=== PATIENT | female | born 1970 | race Caucasian/White ===

== ENCOUNTER 2016-12-11 11:42 | Emergency (ER) | payer OTHER, MEDICAID ==
[~2016-12-11] VITALS: Ht 160 cm; Wt 68.0 kg
[~2016-12-11 11:42] MED LIST: ARIP1TAB7 PO; FURO80TA3 PO; GABA-494 PO; OMEP20CA74 PO; RIFA550T PO; SPIR100T21 PO
[2016-12-11 12:43] LABS: Basophils # (auto) 0 uL; CONDITION Y; DEFINITIVE SEE PRINTOUT; Eosinophils # (auto) 0.1 uL; Hematocrit 35.2 % (36.0-46.0); Lymphocytes # (auto) 0.6 uL; Monocytes # (auto) 0.2 uL; White Blood Cell 2.2 10^3/uL (4.4-10.8)
[2016-12-11 12:47] LABS: Basophils % (auto) 1.2 % (0.0-2.0); Eosinophils % (auto) 4.4 % (0.0-7.0); Lymphocytes % (auto) 28.2 % (10.0-50.0); Mean Corpuscular Hemoglobin 27.9 pg (28.0-32.0); Mean Corpuscular Volume 81.9 fL (80.0-100.0); Mean Platelet Volume 9.2 fL (7.4-10.4); Monocytes % (auto) 10.8 % (0.0-12.0); Neutrophils # (auto) 1.2 uL; Neutrophils % (auto) 55.4 % (37.0-80.0); Red Cell Distribution Width 17.7 % (11.6-16.0)
[2016-12-11 13:04] LABS: Albumin 3.3 g/dL (3.4-5.0); Alkaline Phosphatase 167 U/L (45-117); Anion Gap 7 (5-15); Aspartate Aminotransferase 26 U/L (15-37); BUN/Creatinine Ratio 10.6; Bilirubin, Total 1.9 mg/dL (0.2-1.0); Blood Urea Nitrogen 7 mg/dL (7-18); Calcium 8.5 mg/dL (8.5-10.1); Carbon Dioxide 23 mmol/L (21-32); Chloride 109 mmol/L (98-107); GFR African American 123 mL/min; GFR Non-African American 102 mL/min; Glucose 78 mg/dL (74-106); Magnesium 1.9 mg/dL (1.6-2.6); Sodium 139 mmol/L (136-145); Total Protein 7.5 g/dL (6.4-8.2)
[2016-12-11] MEDS ORDERED: SODIUM CHLORIDE 0.9% 1,000 ML IV ONE (13:53)
[2016-12-11 13:56] LABS: Platelet Count (auto) 58 10^3/uL (140-450); Platelet Estimate Decreased
[2016-12-11] MEDS ORDERED: ONDANSETRON HCL 4 MG/2 ML VIAL IV ONE (14:00)
[2016-12-11 14:08] LABS: Platelet Clumps FEW
[2016-12-11 14:35] LABS: Urine Bilirubin Negative (Negative); Urine Blood Negative /uL (Negative); Urine Color Yellow (Yellow); Urine Glucose Normal (Normal); Urine Ketone Negative (Negative); Urine Nitrite Negative (Negative); Urine RBC <1 /hpf (0 - 4); Urine Squamous Epithelial Cell FEW /hpf (<5); Urine Urobilinogen Normal (Negative)
[2016-12-11 16:19] VITALS: BP 141/81
[2016-12-11] MEDS ORDERED: HYDROmorphone HCL 2 MG/ML VL IV ONE (16:45)
== END 2016-12-11 18:19 | disposition home or self-care (01) ==
LOC: ER 11:42
DX: N39.0 Urinary tract infection, site not specified (principal); R11.2 Nausea with vomiting, unspecified; I13.0 Hypertensive heart and chronic kidney disease with heart failure and stage 1 through stage 4 chronic kidney disease, or unspecified chronic kidney disease; N18.9 Chronic kidney disease, unspecified; I50.9 Heart failure, unspecified
CPT/HCPCS: 36415; 74176; 80053; 81001; 83605; 83735; 84484; 85025; 94761; 96361; 96374; 96375; 99285; J1170; J2405

== ENCOUNTER 2017-03-23 20:10 | Emergency (ER) | payer OTHER, MEDICAID ==
[~2017-03-23] VITALS: Ht 160 cm; Wt 68.0 kg
[2017-03-23 20:51] LABS: Basophils # (auto) 0 uL; Eosinophils # (auto) 0.1 uL; Lymphocytes # (auto) 0.5 uL; Monocytes # (auto) 0.3 uL; White Blood Cell 2.9 10^3/uL (4.4-10.8)
[2017-03-23 20:53] LABS: Basophils % (auto) 0.8 % (0.0-2.0); Eosinophils % (auto) 2.6 % (0.0-7.0); Hematocrit 38.6 % (36.0-46.0); Hemoglobin 13.5 g/dL (12.2-16.2); Lymphocytes % (auto) 17.9 % (10.0-50.0); Mean Corpuscular Hemoglobin 29.8 pg (28.0-32.0); Mean Corpuscular Hgb Conc. 34.9 g/dL (32.0-36.0); Mean Corpuscular Volume 85.5 fL (80.0-100.0); Neutrophils % (auto) 69.7 % (37.0-80.0); Nucleated Red Blood Cells % 0.3 %; Platelet Count (auto) 48 10^3/uL (140-450); Red Cell Distribution Width 16.9 % (11.8-14.3)
[2017-03-23 20:53] LABS: Urine Bilirubin Negative (Negative); Urine Blood Negative /uL (Negative); Urine Color Yellow (Yellow); Urine Glucose Normal (Normal); Urine Ketone Negative (Negative); Urine Nitrite Negative (Negative); Urine RBC 1 /hpf (0 - 4); Urine Squamous Epithelial Cell FEW /hpf (<5); Urine Urobilinogen Normal (Negative)
[2017-03-23 21:08] LABS: Albumin 3.5 g/dL (3.4-5.0); BUN/Creatinine Ratio 13.1; Calcium 8.8 mg/dL (8.5-10.1); Potassium 3.9 mmol/L (3.5-5.1)
[2017-03-23 21:10] LABS: Bilirubin, Total 2.5 mg/dL (0.2-1.0); Total Protein 8.1 g/dL (6.4-8.2)
[2017-03-24] MEDS ORDERED: MEPERIDINE HCL (25 MG/ML) 1ML VIAL ONE (01:30)
[2017-03-24] MEDS ORDERED: MEPERIDINE HCL (25 MG/ML) 1ML VIAL IV ONE (01:45)
[2017-03-24] MEDS ORDERED: diphenhdrAMINE HCL 50 MG/1 ML VL IV ONE (03:30)
[2017-03-24] MEDS ORDERED: MORPHINE SULF INJ 2 MG/ML SYRINGE 1ML IV ONE ×2 (03:30→07:00)
[2017-03-24] MEDS ORDERED: ONDANSETRON HCL 4 MG/2 ML VIAL IV ONE ×2 (03:30→07:00)
[2017-03-24] MEDS ORDERED: metroNIDAZOLE 500MG/100ML 100 ML IV ONE (06:30)
[2017-03-24] MEDS ORDERED: cefTRIAXone 1GM/50ML D5W 50 ML IV ONE ×2 (06:30)
[2017-03-24 09:46] VITALS: BP 125/69
== END 2017-03-24 10:04 | disposition home or self-care (01) ==
LOC: ER 20:10
DX: K80.10 Calculus of gallbladder with chronic cholecystitis without obstruction (principal); D72.819 Decreased white blood cell count, unspecified; K74.60 Unspecified cirrhosis of liver; I50.9 Heart failure, unspecified; I11.0 Hypertensive heart disease with heart failure; K21.9 Gastro-esophageal reflux disease without esophagitis; Z98.51 Tubal ligation status
CPT/HCPCS: 36415; 74176; 76705; 80053; 81001; 82150; 83690; 85025; 96365; 96368; 96375; 96376; 99285; J1200; J2175; J2270; J2405; J3490; J7040; J0696

== ENCOUNTER 2019-01-13 12:58 | Emergency (ER) | payer MEDICARE, MEDICAID ==
[~2019-01-13] VITALS: Ht 160 cm; Wt 80.3 kg
[~2019-01-13 12:58] MED LIST changes: +DOCU100C8 PO; -GABA-494 PO; +GABA100C9 PO; +HYDR-4833 PO; -SPIR100T21 PO; +SPIR100T4 PO; +TRAM50TA2 PO
[2019-01-13 14:24] LABS: Basophils # (auto) 0 uL; Basophils % (auto) 0.9 % (0.0-2.0); Eosinophils # (auto) 0.1 uL; Hemoglobin 15.8 g/dL (12.2-16.2); Lymphocytes # (auto) 0.9 uL; Monocytes # (auto) 0.3 uL; Neutrophils # (auto) 1.6 uL; Nucleated Red Blood Cells % 0.3 %; White Blood Cell 2.9 10^3/uL (4.4-10.8)
[2019-01-13 14:25] LABS: Albumin 3.5 g/dL (3.4-5.0); BUN/Creatinine Ratio 10.3; Calcium 8.7 mg/dL (8.5-10.1); Potassium 3.9 mmol/L (3.5-5.1)
[2019-01-13 14:26] LABS: Hematocrit 44.4 % (36.0-46.0); Mean Corpuscular Hemoglobin 31.7 pg (28.0-32.0); Mean Corpuscular Hgb Conc. 35.4 g/dL (32.0-36.0); Mean Corpuscular Volume 89.6 fL (80.0-100.0); Monocytes % (auto) 9.5 % (0.0-12.0); Neutrophils % (auto) 53.6 % (37.0-80.0); Platelet Count (auto) 44 10^3/uL (140-450); Red Blood Cells 4.96 10^6/uL (4.0-5.20); Red Cell Distribution Width 14.9 % (11.8-14.3)
[2019-01-13 14:28] LABS: Bilirubin, Total 2.3 mg/dL (0.2-1.0); Total Protein 7.5 g/dL (6.4-8.2)
[2019-01-13 14:37] LABS: Urine Bacteria NONE SEEN /hpf (None Seen); Urine Blood Negative /uL (Negative); Urine Specific Gravity 1.021 (1.001-1.035); Urine WBC <1 /hpf (0 - 5)
[2019-01-13] MEDS ORDERED: IBUPROFEN 800 MG TAB PO ONE (16:45)
[2019-01-13 17:18] VITALS: BP 151/81
== END 2019-01-13 17:20 | disposition home or self-care (01) ==
LOC: ER 12:58
DX: K74.60 Unspecified cirrhosis of liver (principal); K21.9 Gastro-esophageal reflux disease without esophagitis; I10 Essential (primary) hypertension; Z90.710 Acquired absence of both cervix and uterus; Z98.51 Tubal ligation status; Z88.6 Allergy status to analgesic agent; Z79.899 Other long term (current) drug therapy
CPT/HCPCS: 36415; 74176; 80053; 81001; 82140; 82150; 83690; 85025

== ENCOUNTER 2019-09-01 13:10 | Inpatient (IN) | payer MEDICARE, OTHER, MEDICAID ==
[~2019-09-01] VITALS: Ht 160 cm; Wt 90.2 kg
[2019-09-01] MEDS ORDERED: SODIUM CHLORIDE 0.9% 500 ML IVB ONE (13:42)
[2019-09-01] MEDS ORDERED: ONDANSETRON HCL 4 MG/2 ML VIAL IV ONE (13:45)
[2019-09-01] MEDS ORDERED: HYDROmorphone HCL 2 MG/ML VL IV ONE (13:45)
[2019-09-01 14:10] LABS: Basophils # (auto) 0.1 10 ^3/uL (0-0.2); Eosinophils # (auto) 0.1 10 ^3/uL (0-0.8); Neutrophils # (auto) 2.9 10 ^3/uL (1.6-8.6); White Blood Cell 4.5 10^3/uL (4.4-10.8)
[2019-09-01 14:17] LABS: Basophils % (auto) 1.3 % (0.0-2.0); Eosinophils % (auto) 1.4 % (0.0-7.0); Hematocrit 47.4 % (36.0-46.0); Hemoglobin 16.1 g/dL (12.2-16.2); Lymphocytes % (auto) 22.8 % (10.0-50.0); Mean Corpuscular Hemoglobin 31.6 pg (28.0-32.0); Mean Corpuscular Volume 93.1 fL (80.0-100.0); Monocytes # (auto) 0.4 10 ^3/uL (0-1.3); Monocytes % (auto) 9.9 % (0.0-12.0); Neutrophils % (auto) 64.6 % (37.0-80.0); Nucleated Red Blood Cells % 0.2 %; Platelet Count (auto) 55 10^3/uL (140-450); Red Cell Distribution Width 16.2 % (11.8-14.3)
[2019-09-01 14:23] LABS: Albumin 3.3 g/dL (3.4-5.0); Calcium 8.7 mg/dL (8.5-10.1); Potassium 4.2 mmol/L (3.5-5.1)
[2019-09-01 14:25] LABS: INR 1.64 (0.9-1.15); Partial Thromboplastin Time 32.5 sec (23.64-32.05)
[2019-09-01 14:26] LABS: BUN/Creatinine Ratio 9.5; Bilirubin, Total 3.6 mg/dL (0.2-1.0); Total Protein 7.3 g/dL (6.4-8.2)
[2019-09-01] MEDS ORDERED: MORPHINE SULF INJ 2 MG/ML SYRINGE 1ML IV PRN (15:15)
[2019-09-01] MEDS ORDERED: HYDROmorphone HCL 2 MG/ML VL IV PRN ×2 (15:15)
[2019-09-01] MEDS ORDERED: PANTOPRAZOLE 40 MG/10 ML VIAL INJ IV ONE (15:15)
[2019-09-01] MEDS ORDERED: TEMAZEPAM 15 MG CAP PO PRN (15:15)
[2019-09-01] MEDS ORDERED: NITROGLYCERIN 0.4 MG SL TAB SL PRN (15:15)
[2019-09-01] MEDS ORDERED: FUROSEMIDE INJECTION 10 ML ONE (15:55)
[2019-09-01] MEDS ORDERED: FUROSEMIDE 40 MG/4 ML VIAL IV ONE (16:00)
--- NOTE | 2019-09-01 17:05 | NUR ---
Telemetry admit from [facility] admitted to Telemetry unit after SBAR received. Patient oriented to PREETHI GAONA RN primary RN, unit, room, bed, and unit policies regarding patient care and visiting hours. Patient now on continuous telemetry monitoring, tele box # and telemetry reading on arrival to unit is . Patient weighed by bedscale and encouraged to call if they need something. All questions and concerns addressed, patient verbalized understanding. Note:
[2019-09-01] MEDS ORDERED: OMEP-263 (18:45)
[2019-09-01] MEDS ORDERED: GABA400C11 (18:45)
--- NOTE | 2019-09-01 20:00 | NUR ---
Opening Shift Note Assumed care of patient, awake and alert x4. Patient denies shortness of breath at this time, patient is on 2L NC, no signs/symptoms of distress noted or verbalized at this time. Patient is complaining of lower abdominal pain (pain scale 8/10) and nausea, will medicate patient as ordered by MD. Instructed on plan of care and to call for assistance as needed, patient verbalized understanding. Bed is locked in lowest position, side rails x2 are up, call light is within reach, and bed alarm is on.
[2019-09-01] MEDS: HYDROmorphone HCL 2 MG/ML VL IV PRN (20:30)
[2019-09-01] MEDS: PROMETHAZINE HCL 25 MG/ML 1ML IV PRN (20:30)
--- NOTE | 2019-09-01 20:30 | NUR ---
Pain/Nausea Patient is complaining of lower abdominal pain (pain scale 8/10) and nausea, patient has been medicated for pain and nause as ordered by MD (see eMAR).
--- NOTE | 2019-09-01 21:00 | NUR ---
Reassessment Pain/Nausea Patient laying in bed, eyes closed, with even and unlabored respirations noted. No sign/symptoms of pain or nausea noted at this time.
[2019-09-01] MEDS: PANTOPRAZOLE 40 MG TAB PO SCH (21:29)
[2019-09-01 21:50] VITALS: BP 131/82
[2019-09-01] MEDS ORDERED: IOHEXOL 350 MG/ML 100ML IJ ONE (22:31)
[2019-09-02] MEDS: PROMETHAZINE HCL 25 MG/ML 1ML IV PRN ×3 (03:19→23:35)
[2019-09-02] MEDS ORDERED: D5W 5% 1,000 ML IV ONE (05:00)
[2019-09-02] MEDS ORDERED: DEXTROSE 50% SYRINGE 50 ML IV ONE (05:11)
[2019-09-02] MEDS ORDERED: DEXTROSE (50%) 50ML SYRG IV ONE ×2 (05:15)
--- NOTE | 2019-09-02 05:41 | NUR ---
Low Blood Sugar 04:28: Patient was complaining of generalized weakness and patient stated "I feel like my body is shutting down." Patient was noted to be pale, blue lips, and cool to touch. Vital signs were performed which were the following: BP: 97/77, HR: 98, RR: 18, SPO2: 94% on 2L NC. Blood sugar at this time was performed which reveled to be 27. Patient was lethargic but A&OX4 and able to swallow. Patient was provided with 2 orange juices and drank them without complications. 04:30: Hospitalist was paged at this time and no call back was received. 04:36: Blood sugar was rechecked and found to be 28. 04:45: Hospitalist re-paged for second time. No call back was received at this time. Patient was still A&O x4. 04:50: This RN hang a bag of D5% and infused it at 75ml/hr. 04:50: Hospitalist was re-paged for third time. No call back was received at this time. 04:55 moth exterminator made aware of situation and that this RN had paged hospitalist x3 times with no response, per charge nurse she was going to make banquet houseperson aware. 05:05: Spoke with hospitalist MD Hogue. Made MD Hogue aware of patient's condition (including blue lip colors, cool skin to touch, and pale completion) and this RN made Dr. Hogue aware that she started to infuse D5W at 75mls/hr. Per MD Hogue this was okay and ordered to bolus the rest of the D5%, switch the D5% to D10% at 75mls/hr after the bolus was completed, to administer two amps of D50% IV twice, recheck blood sugar in 30 minutes, and Q4 hour accu-checks with no insulin coverage. Orders were received, read back, verified, and carried out. 0541: Blood sugar rechecked at this time and found to be 61. Patient at this time was A&OX4 and still lethargic.
[2019-09-02 05:47] VITALS: BP 109/83
[2019-09-02] MEDS: DEXTROSE 10% 1,000 ML IV SCH ×3 (06:00→21:56)
[2019-09-02] MEDS ORDERED: DEXTROSE (50%) 50ML SYRG IV PRN ×2 (06:30→10:00)
--- NOTE | 2019-09-02 07:25 | NUR ---
OPEN REPORT RECEIVED REPORT ON PATIENT. PATIENT HAD DECREASE BLOOD GLUCOSE VALUES AND DECREASE MENTATION. PATIENT DENIED DIZZINESS, SYNCOPE OR FEELING FAINT/LIGHTHEADED AND OR SPINNING. PATIENT STATED FEELING TIRED, DELAYED RESPONSES TO QUESTIONS. REASSESSED BG 245MG/DL, DC IV FLUIDS OF D10 AT 75ML/DL. WILL CONTINUE TO MONITOR
[2019-09-02 08:00] VITALS: BP 132/80
[2019-09-02] MEDS: ACCU-CHEK COMFORT CURVE STRIP VI SCH ×4 (10:35→22:00)
[2019-09-02] MEDS: PANTOPRAZOLE 40 MG TAB PO SCH ×2 (10:35→21:55)
--- NOTE | 2019-09-02 10:35 | NUR ---
OBSERVATION UPON AUSCULTATION OF HEART SOUNDS, HEARD A NEW MURMUR ON THE PULMONIC VALVE. NOTED EDEMA BOTH RIGHT AND LEFT HANDS. BILATERAL EDEMA ON THE FEET CONTINUOUSLY PRESENT.
--- NOTE | 2019-09-02 10:48 | NUR ---
PAGED HOSPITAL LIST ABOUT NEW FINDINGS
--- NOTE | 2019-09-02 11:20 | NUR ---
PHYSICIAN NOTIFIED NOTIFIED DR. ENCARNACION, HOSPITAL LIST OF [facility]/ CHANGE IN CONDITION OF PATIENT. NOTED MURMUR AND BILATERAL EDEMA OF RIGHT AND LEFT HANDS, WHICH WAS NOT PRESENT ON ADMISSION ON 09/01/2019.
--- NOTE | 2019-09-02 11:30 | NUR ---
NUCLEAR MED COMMUNICATION CALLED TO HAVE PATIENT NPO FOR HIDA SCAN.
[2019-09-02] MEDS: HYDROmorphone HCL 2 MG/ML VL IV PRN ×2 (11:42→15:03)
[2019-09-02 12:00] VITALS: BP 122/86
--- NOTE | 2019-09-02 16:10 | NUR ---
Nutrition Assessment Notes Please refer to link for full assessment notes. Est Energy needs: 5564-9992 kcals (14-18 kcal/kgBW) Est Protein needs: 50-62 gms/day (0.8-1.0 gm/kgBW) Will continue to monitor and reassess prn. Addendum: 09/02/19 at [address] Amended: Links added.
[2019-09-02 16:57] VITALS: BP 111/79
--- NOTE | 2019-09-02 17:20 | NUR ---
COMMUNICATION DR. ENCARNACION PAGED FOR PATIENTS AMMONIA LEVELS FROM 09/01/2019 133/UNIT VOLUME, WHICH IS INCREASED. PREVIOUS DR. ENCARNACION ASKED TO PUT IN AMMONIA LEVELS FOR TODAY 09/02/2019 AND NOTIFY RESULTS IF THEY ARE INCREASED. BY 1700 LAB RESULTS HAVE NOT POPULATED AND BLOOD DRAW HAD NOT OCCURRED, PAGED DR. ENCARNACION PREVIOUS INCREASED LAB VALUES FROM 09/01/[address] ENCARNACION ORDERED 30ML OF LACTULOSE Q6HR FIRST DOSE NOW, WILL PROCEED WITH REQUEST AND WILL CONTINUE TO MONITOR.
[2019-09-02] MEDS: LACTULOSE 20Gm/30ML SOLN PO SCH (18:43)
--- NOTE | 2019-09-02 19:30 | NUR ---
Opening Shift Note Assumed care of patient, awake and alert x4, with a delay in response to questions. Patient is complaining of shortness of breath at this time. Patient is on 3L NC and oxygen saturation at this time is 97%. Upon physical assessment, patient was found to have crackles to bilateral lower lobes, nonpitting edema to bilateral upper and lower extremities, will notify hospitalist of findings. Patient denies pain at this time. Patient is complaining of nausea at this time, will medicate patient for nausea as ordered by MD (see eMAR). Instructed on plan of care and to call for assistance as needed, patient verbalized understanding. Bed is locked in lowest position, side rails x2 are up, call light is within reach, and bed alarm is on.
--- NOTE | 2019-09-02 19:50 | NUR ---
Hospitalist Paged RE: Shortness of Breath Hospitalist paged regarding shortness of breath. Awaiting call back.
--- NOTE | 2019-09-02 20:02 | NUR ---
Received Call from Dr. Cerda Received call from Dr. Cerda. Notified Dr. Cerda that patient is complaining of shortness of breath and upon physical assessment this RN noted crackles to bilateral lower lobes and non-pitting edema to bilateral upper and lower extremities. Dr. Cerda notified that patient's oxygen saturation is 97% on 3LNC and that patient has an active order for D10% to infuse at 75mls/hr. Discussed plan of care with Dr. Cerda over the phone. Per Dr. Cerda he will look over chart and input orders. Will carry out orders as received once they are entered into the EMR.
[2019-09-02] MEDS ORDERED: ALBUMIN 25% 50 ML IV ONE (20:15)
[2019-09-02] MEDS ORDERED: FUROSEMIDE 100 MG/10ML VIAL IV ONE (20:15)
[2019-09-02 21:43] VITALS: BP 103/80
[2019-09-03] MEDS: LACTULOSE 20Gm/30ML SOLN PO SCH ×5 (00:32→23:35)
--- NOTE | 2019-09-03 00:50 | NUR ---
Urine Specimen Collected Urine specimen collected and sent to lab via bullet.
[2019-09-03] MEDS: ACCU-CHEK COMFORT CURVE STRIP VI SCH ×6 (02:30→23:32)
--- NOTE | 2019-09-03 04:00 | NUR ---
Bowel Movement Assisted patient to the bedside commode with the assistance of yamilex Gray. Patient noted to have a large dark brown loose bowel movement. Patient cleaned and assisted back into bed. Patient tolerated well. Bed is locked in lowest position, side rails x 2 are up, call light is within reach, and bed alarm is on.
[2019-09-03 04:47] LABS: Urine Bacteria FEW /hpf (None Seen); Urine Blood 1+ /uL (Negative); Urine Mucus FEW (None Seen); Urine Specific Gravity 1.023 (1.001-1.035); Urine WBC 7 /hpf (0 - 5)
[2019-09-03 04:51] LABS: Alcohol, Urine < 3.0 mg/dL (0-5); Amphetamine Screen, Urine NEGATIVE (NEGATIVE); Barbiturate Scree,Urine NEGATIVE (NEGATIVE); Cannabinoid Screen, Urine NEGATIVE (NEGATIVE); Cocaine Screen, Urine NEGATIVE (NEGATIVE); Opiate Scree,Urine NEGATIVE (NEGATIVE); Phencyclidine Screen, Urine NEGATIVE (NEGATIVE)
[2019-09-03 04:57] LABS: Benzodiazephine Screen, Urine NEGATIVE (NEGATIVE)
[2019-09-03 05:03] VITALS: BP 107/75
--- NOTE | 2019-09-03 06:40 | NUR ---
Spoke with Hospitalist Re: Social Service Consult Notified Dr. Hogue that per Trent's notes and per report from day shift RN, Dr. Newman wants patient transferred to higher level of care and would like to obtain medical records from [facility]. Per Dr. Hogue it is okay for this RN to place social service consult for higher level of care and order to obtain medical records from [facility]. Will carry out order as received.
--- NOTE | 2019-09-03 07:20 | NUR ---
Opening Shift Note: Assumed care of patient, awake and alert. No S/S of distress/SOB or pain. Bed in lowest locked position, side rails up x 2, call light within reach. Patient instructed on POC and to call for assist PRN, will continue to monitor for changes Q1hr and PRN.
[2019-09-03 09:27] VITALS: BP 108/84
[2019-09-03] MEDS: PANTOPRAZOLE 40 MG TAB PO SCH ×2 (10:22→23:32)
[2019-09-03] MEDS: FUROSEMIDE 100 MG/10ML VIAL IV SCH (11:57)
[2019-09-03] MEDS: HYDROmorphone HCL 2 MG/ML VL IV PRN (12:06)
--- NOTE | 2019-09-03 12:29 | NUR ---
Fax medical record request to [facility]
[2019-09-03 12:55] VITALS: BP 123/78
--- NOTE | 2019-09-03 12:55 | NUR ---
Called pony trimmer adoption social worker regarding consult for transfer to higher level of care
--- NOTE | 2019-09-03 16:49 | NUR ---
PATIENT BP AT THIS TIME IS 164/92. DR. ENCARNACION CALLED AND NOTIFIED. NEW ORDERS RECEIVED, READ BACK AND VERIFIED. ORDERS TO BE CARRIED OUT.
[2019-09-03 16:52] VITALS: BP 164/92
[2019-09-03] MEDS ORDERED: cloNIDine HCL 0.1 MG TAB PO PRN (17:00)
--- NOTE | 2019-09-03 18:53 | NUR ---
CLOSING NOTE: Patient resting in bed. No S/S of pain, distress or SOB at this time. Care endorsed to NOC RN.
--- NOTE | 2019-09-03 20:00 | NUR ---
Opening Shift Note Assumed care of patient, awake and alert x3, with a delay in response to questions. Patient reoriented to time, this RN will continue to reorient patient as needed and throughout the shift. Patient denies pain or shortness of breath at this time. Instructed on plan of care and to call for assistance as needed, patient verbalized understanding. Bed is locked in lowest position, side rails x2 are up, call light is within reach, and bed alarm is on.
[2019-09-03 22:00] VITALS: BP 125/81
--- NOTE | 2019-09-03 22:07 | NUR ---
Spoke with Hospitalist Re: Mental Status Dr. Hogue that patient is alert and oriented x 2-3 (different from previous baseline). Dr. Hogue made aware that patient has an elevated ammonia level which was last drawn this morning and is on Lactulose 30ml every six hours. Dr. Hogue made aware that patient had 1 bowel movement during the day. No new orders received at this time.
[2019-09-03] MEDS: DEXTROSE 10% 1,000 ML IV SCH (23:36)
[2019-09-04] MEDS: ACCU-CHEK COMFORT CURVE STRIP VI SCH ×6 (02:00→21:29)
[2019-09-04 05:00] VITALS: BP 137/87
[2019-09-04] MEDS: LACTULOSE 20Gm/30ML SOLN PO SCH ×4 (06:00→21:29)
--- NOTE | 2019-09-04 07:11 | NUR ---
Opening Shift Note: Assumed care of patient. Patient alert to self and place at this time. No S/S of distress/SOB or pain. Bed in lowest locked position, side rails up x 2, call light within reach. Sitter at bedside for patient safety. Patient instructed on POC and to call for assist PRN, will continue to monitor for changes Q1hr and PRN.
[2019-09-04] MEDS: FUROSEMIDE 100 MG/10ML VIAL IV SCH (09:17)
[2019-09-04] MEDS: PANTOPRAZOLE 40 MG TAB PO SCH ×2 (09:17→21:29)
[2019-09-04] MEDS: HYDROmorphone HCL 2 MG/ML VL IV PRN (09:18)
--- NOTE | 2019-09-04 09:47 | NUR ---
LEFT WRIST IV INFILTRATED. IV removal: IV DC'd with clean sterile technique, catheter fully intact. Pressure dressing applied to site. Patient tolerated well. IV insertion: IV access obtained, via clean sterile technique by inserting 20 gauge catheter at RIGHT FOREARM after 1 attempt. IV secured properly. No trauma to site. Patient tolerated well.
--- NOTE | 2019-09-04 11:13 | NUR ---
DR. IVANA Perkins at bedside.
--- NOTE | 2019-09-04 12:57 | NUR ---
In house covid swab obtained and taken to lab.
[2019-09-04 13:00] VITALS: BP 116/68
--- NOTE | 2019-09-04 14:00 | NUR ---
Patient set up password [id number]
--- NOTE | 2019-09-04 14:47 | NUR ---
Patient refused IV fluids at this time.
[2019-09-04 17:00] VITALS: BP 125/90
--- NOTE | 2019-09-04 19:15 | NUR ---
CLOSING NOTE: Patient resting in bed, no S/S of distress or SOB at this time. Bed alarm activated and sitter at bedside for patient safety. Care endorsed to [facility] RN
--- NOTE | 2019-09-04 19:35 | NUR ---
Opening Shift Note Assumed care of patient, awake and alert. Patient assessed and follows commands, only oriented to self, and emotional. Patient given reassurance at this time, in agreement. In no other S/S of distress/SOB or pain. Sitter at bedside for safety. Fall and safety precautions are in place. Patient oriented to room, bed, controls, call light, and how to call for help. Instructed on POC and to call for assist PRN, patient verbalized understanding and in agreement. Will continue to monitor for changes Q1hr and PRN.
--- NOTE | 2019-09-04 20:00 | NUR ---
Patient reconnected to IV Fluids Patient reconnected to IV fluids (see emar) at this time. Patient given education on indication/importance of maintenance fluids, patient verbalized understanding and in agreement. Will continue to monitor.
[2019-09-04] MEDS: DEXTROSE 10% 1,000 ML IV SCH (20:15)
--- NOTE | 2019-09-04 20:32 | NUR ---
Attempted to Call Back Patient's Family Member Called [phone] [[place]] to update/discuss patient status. No answer at this time. Left voicemail. Will continue to monitor.
--- NOTE | 2019-09-04 21:20 | NUR ---
Blood Sugar Patient's blood sugar 80. Patient given two cranberry juices. Drank with assistance. Will continue to monitor.
[2019-09-04 22:00] VITALS: BP 113/70
--- NOTE | 2019-09-05 02:00 | NUR ---
Blood Sugar / Bowel Movement Patient's sugar is 89. Offered two cranberry juices, drank 1.5. Patient additionally assisted to BSC, has BM loose watery brown clear stool. Gisselle care provided and partial linen change. Assisted back into bed, repositioned for comfort. Patient is speaking in more coherent sentences. Will continue to monitor.
[2019-09-05] MEDS: LACTULOSE 20Gm/30ML SOLN PO SCH ×6 (02:07→21:38)
[2019-09-05] MEDS: ACCU-CHEK COMFORT CURVE STRIP VI SCH ×6 (02:08→21:44)
[2019-09-05 05:00] VITALS: BP 113/57
--- NOTE | 2019-09-05 07:20 | NUR ---
PT AWAKE, ALERT, ORIENTED x4 ABLE TO VERBALIZE NEEDS. SITTER AT BEDSIDE. BED LOCKED AND IN LOWEST POSITION, CALL LIGHT WITHIN REACH. WILL CONTINUE TO MONITOR.
[2019-09-05 09:00] VITALS: BP 140/81
--- NOTE | 2019-09-05 09:27 | NUR ---
I faxed higher level of care order to [facility].
[2019-09-05] MEDS: PANTOPRAZOLE 40 MG TAB PO SCH ×2 (10:52→21:38)
[2019-09-05] MEDS: FUROSEMIDE 100 MG/10ML VIAL IV SCH (10:52)
--- NOTE | 2019-09-05 11:34 | NUR ---
Nutrition Followup Notes Wt: 91.7 kg Pt was sleeping/ not very alert with no family by bedside. per records pt awaiting HLC. pt is currently on clear liq diet with inadequate PO of 50% x 3 per RN doc Est Energy needs: 5385-1456 kcals (14-18 kcal/kgBW), Est Protein needs: 37-50gms/day (0.8-1.0 gm/kgBW). Will continue to monitor and reassess prn. Reassessed as elev ammonia LABS: AMMONIA 41 H, GI: Pt hd 3 BM today per RN doc BS: 14 mod risk PES: Problem 1) Increased nutrient needs r/t pt on cld aeb pt on clear liquid diet 2) Obesity r/t energy intake in excess of energy needs aeb 177% IBW and BMI of 36.2 kg/m2 3) Inadequate PO intake r./t current medical condition aeb 0% of meals eaten Comments Will continue to closely monitor pertinent labs, PO intake and skin status prn. Will followup in 2-3 days 1) Continue to closely monitor pt PO intake to meet at least 75% of meals and consider ensure clear 1 carton bid 2) Gradually advance pt to oral diet when medically feasible and as tolerated 3) Continue current plan of care
--- NOTE | 2019-09-05 11:49 | NUR ---
I spoke with Hue at [facility], provided her with additional clinical information as requested-she will present information to her MD and let me know if they can accept this patient.
[2019-09-05 13:00] VITALS: BP 130/70
--- NOTE | 2019-09-05 13:04 | NUR ---
DR. ENCARNACION IN TO SEE PT. PLAN OF CARE DISCUSSED.
--- NOTE | 2019-09-05 14:18 | NUR ---
I spoke with Keerthi at the [facility] Transfer [facility] to let her know that transfer has been cancelled.
--- NOTE | 2019-09-05 14:30 | NUR ---
GI CONSULTS SENT TO VANESSA AT [facility]. VANESSA AWARE OF TRANSFER CANCELLATION.
[2019-09-05 16:48] VITALS: BP 134/77
--- NOTE | 2019-09-05 18:00 | NUR ---
PT AWAKE, ALERT, ORIENTEDx4 COOPERATIVE OF CARE, ABLE TO VERBALIZE NEEDS. EFFORTLESS BREATHING ON ROOM AIR. BED LOCKED AND IN LOWEST POSITION, CALL LIGHT WITHIN REACH.
--- NOTE | 2019-09-05 19:25 | NUR ---
Opening Shift Note Received report and assumed care of patient. Patient, awake and alert. No S/S of distress/SOB or pain. Instructed to call for assist if needed and patient verbalized understanding. Sitter at the bedside. Will continue to monitor .
--- NOTE | 2019-09-05 20:00 | NUR ---
IV removal Patient c/o pain in the IV site at L forearm .IV DC'd with sterile technique, catheter fully intact. Pressure dressing applied to site. Patient tolerated procedure well.
--- NOTE | 2019-09-05 20:30 | NUR ---
IV insertion IV access obtained, via clean sterile technique by inserting 24 gauge catheter at L forearm after 1 attempt(s). IV secured properly. No trauma to site. Patient tolerated procedure well.
[2019-09-05 21:15] VITALS: BP 123/74
[2019-09-05] MEDS: DEXTROSE 10% 1,000 ML IV SCH (21:51)
[2019-09-06] MEDS: LACTULOSE 20Gm/30ML SOLN PO SCH ×6 (02:43→21:56)
[2019-09-06] MEDS: ACCU-CHEK COMFORT CURVE STRIP VI SCH ×6 (02:47→22:10)
[2019-09-06 04:48] VITALS: BP 124/79
[2019-09-06 06:14] LABS: Albumin 2.6 g/dL (3.4-5.0); BUN/Creatinine Ratio 14.7; Calcium 8.1 mg/dL (8.5-10.1)
[2019-09-06 06:23] LABS: Bilirubin, Total 10.8 mg/dL (0.2-1.0); Total Protein 5.9 g/dL (6.4-8.2)
[2019-09-06 09:00] VITALS: BP 119/86
[2019-09-06] MEDS: SPIRONOLACTONE 25 MG TAB PO SCH (10:30)
[2019-09-06] MEDS: PANTOPRAZOLE 40 MG TAB PO SCH ×2 (10:30→21:56)
[2019-09-06 13:00] VITALS: BP 131/86
[2019-09-06] MEDS: FUROSEMIDE 20 MG TAB PO SCH (13:14)
--- NOTE | 2019-09-06 16:26 | NUR ---
assessment Patient is a 4 year old female who is alert and oriented. Patients cognitive abilities are intact. Prior to admission patient lived home with family and functioned independently. Patient informed me she is able to care for her own ADLs. Per patient she will return home to her prior living arrangements post discharge and family will transport her home. Patient informed me she has a fww for home use. Patients PCP is Dr Mcginnis. Patients transfer order has been cancelled. Per patient she feels safe returning home on discharge. Patient has no post discharge needs identified at this time. I informed patient she has a right to speak to a manager social media regarding all care. I informed patient she has a right to participate in any and all discharge planning. Patient has a POA and advanced directive. Patient verbalized understanding and agreed to discharge plan. Addendum: 09/06/19 at 1629 by Jerri MUÑOZ Amended: Links added.
[2019-09-06 17:00] VITALS: BP 134/68
--- NOTE | 2019-09-06 20:00 | NUR ---
Opening Shift Note Assumed care of patient, awake and alert, oriented x 4, follows direction, clear speech. On room air with even and unlabored respirations, no S/S of distress/SOB. Patient denies pain at this time. Patient tolerable dinner well, denies nausea. Bed in lowest locked position with side rails up x 2 and call light within reach. Instructed on POC and to call for assist PRN, will continue to monitor for changes Q1hr and PRN.
[2019-09-06] MEDS: DEXTROSE 10% 1,000 ML IV SCH (21:56)
[2019-09-07] MEDS: ACCU-CHEK COMFORT CURVE STRIP VI SCH ×3 (02:57→09:40)
[2019-09-07] MEDS: LACTULOSE 20Gm/30ML SOLN PO SCH ×3 (02:57→09:15)
[2019-09-07 05:00] VITALS: BP 121/91
[2019-09-07 06:17] LABS: Albumin 2.7 g/dL (3.4-5.0); BUN/Creatinine Ratio 13.1; Bilirubin, Total 12.1 mg/dL (0.2-1.0); Calcium 7.9 mg/dL (8.5-10.1)
[2019-09-07 06:36] LABS: Potassium 2.9 mmol/L (3.5-5.1)
--- NOTE | 2019-09-07 06:56 | NUR ---
Paged Hospitalist RE: critical k 2.9 awaiting call back.
--- NOTE | 2019-09-07 07:05 | NUR ---
Received new order spoke with [facility], informed of critical K level. New order received for potassium 40meq PO once. Read back and verified.
--- NOTE | 2019-09-07 07:06 | NUR ---
Closing Note patient resting in bed with even and unlabored respirations, no s/s of distress. Endorsed care to day shift RN.
[2019-09-07] MEDS ORDERED: POTASSIUM CHL 20 Meq TABLET PO ONE (07:15)
--- NOTE | 2019-09-07 07:40 | NUR ---
Opening Shift Note Assumed care of patient, awake and alert sitting up in bed. No S/S of distress/SOB or pain. Instructed on POC and to call for assist PRN, will continue to monitor for changes Q1hr and PRN.
[2019-09-07 09:07] VITALS: BP 130/75
[2019-09-07] MEDS: PANTOPRAZOLE 40 MG TAB PO SCH (09:15)
[2019-09-07] MEDS: FUROSEMIDE 20 MG TAB PO SCH (09:15)
[2019-09-07] MEDS: SPIRONOLACTONE 25 MG TAB PO SCH (09:15)
[2019-09-07 12:00] VITALS: BP 131/77
--- NOTE | 2019-09-07 12:25 | NUR ---
Hospitalist Nghiaing Dr. Perkins at bedside.
[2019-09-07] MEDS ORDERED: GABA400C11 PO (12:39)
[2019-09-07] MEDS ORDERED: SPIR100T4 PO (12:39)
[2019-09-07] MEDS ORDERED: OMEP20TA PO (12:39)
[2019-09-07] MEDS ORDERED: LACT10SO3 PO (12:39)
[2019-09-07] MEDS ORDERED: ONDA-155 PO (12:39)
[2019-09-07] MEDS ORDERED: FURO40TA4 PO (12:39)
[2019-09-07] MEDS ORDERED: RIFA550T PO (12:39)
[2019-09-07 15:14] VITALS: BP 131/77
--- NOTE | 2019-09-07 16:30 | NUR ---
Discharge instructions given as ordered. Encourage to follow up with PMD as instructed. All questions and concerns addressed. Patient verbalized understanding. Medication reconciliation form completed and copy given to patient. IV removed with catheter intact and pressure dressing applied. Telemetry unit returned to ICU. Patient taken to vehicle via wheelchair with all personal belongings, accompanied by staff. No distress noted at time of departure.
== END 2019-09-07 16:30 | disposition home or self-care (01) | DRG 432 ==
LOC: ER 13:10 → TELE 13:11 → TELE-WESTW 16:58
PROVIDERS: ADMIT Internal Medicine; ATTEND Family Medicine
DX: K70.31 Alcoholic cirrhosis of liver with ascites (principal); G93.41 Metabolic encephalopathy; I13.0 Hypertensive heart and chronic kidney disease with heart failure and stage 1 through stage 4 chronic kidney disease, or unspecified chronic kidney disease; E72.20 Disorder of urea cycle metabolism, unspecified; K76.6 Portal hypertension; D68.9 Coagulation defect, unspecified; K70.40 Alcoholic hepatic failure without coma; D69.6 Thrombocytopenia, unspecified; N18.3 Chronic kidney disease, stage 3 (moderate); E66.9 Obesity, unspecified; E16.2 Hypoglycemia, unspecified; F32.9 Major depressive disorder, single episode, unspecified; K21.9 Gastro-esophageal reflux disease without esophagitis; K82.8 Other specified diseases of gallbladder; Z82.49 Family history of ischemic heart disease and other diseases of the circulatory system; Z79.899 Other long term (current) drug therapy; Z83.3 Family history of diabetes mellitus; Z90.710 Acquired absence of both cervix and uterus; R01.1 Cardiac murmur, unspecified; I50.9 Heart failure, unspecified; Z68.36 Body mass index [BMI] 36.0-36.9, adult; Z20.828 Contact with and (suspected) exposure to other viral communicable diseases
CPT/HCPCS: 36415; 71045; 71275; 74176; 76705; 78226; 80053; 80307; 81001; 82140; 82962; 83690; 85025; 85379; 85610; 85730; 93005; 93306; C9113; G0378; J2405